=== PATIENT | male | born 1965 | race Caucasian/White ===

== ENCOUNTER → 2020-07-18 | Outpatient (CLI) | payer OTHER, SELFPAY ==
[2020-07-18 10:30] LABS: Vitamin D,25 Hydroxy 30.6 ng/mL
[2020-07-18 10:33] LABS: Anion Gap 4 (5-15); BUN 14 mg/dL (7-18); BUN/Creat Ratio 12.7 RATIO (10-20); Calcium,Total 9.1 mg/dL (8.5-10.1); Chloride 108 mmol/L (98-107); Cholesterol 215 mg/dL (200); EST Glomerular Filtration Rate 74 mL/min (>60); Est Glom Filt Rate - Afr Amer 90 mL/min (>60); Glucose 94 mg/dL (74-106); High Density Lipoprotein 42 mg/dL; PSA,Total - Annual Screen 1.27 ng/mL (0.00-4.00); Potassium 4.1 mmol/L (3.5-5.1); Sodium Level 141 mmol/L (136-145); Thyroid Stim Hormone (TSH) 1.52 uIU/mL (0.358-3.74); Triglycerides 179 mg/dL; Very Low Density Lipoprotein 36 mg/dL (5-40)
== END | disposition home or self-care (01) ==
LOC: MFPLAB 09:00
PROVIDERS: PCP Family Medicine; Referring Provider Family Medicine; Visit Provider Family Medicine
DX: I10 Essential (primary) hypertension (principal); F41.9 Anxiety disorder, unspecified; Z12.5 Encounter for screening for malignant neoplasm of prostate
CPT/HCPCS: 36415; 80048; 80061; 82306; 84153; 84443; G0103

== ENCOUNTER → 2021-07-21 10:10 | Outpatient (CLI) | payer OTHER, SELFPAY ==
[2021-07-21 12:41] LABS: Anion Gap 6 (5-15); BUN 16 mg/dL (7-18); BUN/Creat Ratio 13.8 RATIO (10-20); Calcium,Total 9.4 mg/dL (8.5-10.1); Chloride 106 mmol/L (98-107); Cholesterol 218 mg/dL (200); Creatinine, Serum 1.16 mg/dL (0.70-1.30); EST Glomerular Filtration Rate 70 mL/min (>60); Est Glom Filt Rate - Afr Amer 84 mL/min (>60); Glucose 102 mg/dL (74-106); High Density Lipoprotein 39 mg/dL; PSA,Total - Annual Screen 1.41 ng/mL (0.00-4.00); Potassium 4.2 mmol/L (3.5-5.1); Sodium Level 141 mmol/L (136-145); Triglycerides 183 mg/dL; Very Low Density Lipoprotein 37 mg/dL (5-40)
[2021-07-21 12:57] LABS: Vitamin D,25 Hydroxy 62.7 ng/mL
== END ==
PROVIDERS: PCP Family Medicine; Referring Provider Family Medicine; Visit Provider Family Medicine
DX: I10 Essential (primary) hypertension (principal); E55.9 Vitamin D deficiency, unspecified; Z12.5 Encounter for screening for malignant neoplasm of prostate
CPT/HCPCS: 36415; 80048; 80061; 82306; 84153; 84403; G0103

== ENCOUNTER 2022-03-09 11:00 | Outpatient (RCR) | payer OTHER, SELFPAY ==
--- NOTE | 2022-03-04 15:28 | HP.PTEVAL_ITS ---
Patient's Visit Information TITA MACHADO is a 56 year old M referred to Physical Therapy by Dr. Brissa Mayer MD with a diagnosis of LEFT LATERALIS STAIN ,CHRONIC BACK PAIN. Date of Evaluation: 03/04/22 Physical Therapist: Mo Riojas, PT, Cert MDT, OCS - Visit Plan Frequency: 2x /Week Duration: 4 Weeks Plan: PT INTERVETIONS LUMBAR FLEXIION ,THORCAIC/LUMBAR MOBLITY ,POSTURAL EX'S,LE STRETCHING ,DLS AND MODALTIES PRN - Subjective This 56 y/o male presents to physical therapy with left lumbar pain along with chronic back pain. Patient was golfing ~ 3weeks ago February 09 ,hitting off tie felt pop in left lumbar ,and tried to continue felt sharp pain trying to finish 3 more rounds. Patient has h/o scoliosis since childhood. Patient tried massage which made symptoms worse. Finally seen DR recommended PT. No MEDS . Pain located left lumbar . Symptoms not too bad. Denies paresthesia/tingling. Aggravating twisting motion ,bending. Affects sleeping in upper back. Patient alleviating factors rest. Coughing/sneezing + . Bowel/bladder -. Patient had prior PT many years ago. No x-rays and MEDS. Patients pain left lumbar affects QOL ,function and return to golfing. Patient did see chiropractor for adjustments and injections trigger point. SOCIAL: . 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 SYMMMTRIES: right leg shorter pelvis. GAIT: reciprocal pattern. PALAPTION: tender lateral intercostals and obliques mild. NEURO: denies paresthesia/tingling ,reflexes 2/3 L3-4,L4-5,L5-S1 - Balance/Special Test Scores Oswestry Low Back Score: 14 - Goals Goal 1:: Patient to be I with HEP for lumbar Goal Time Frame: 4-6 Weeks Goal 2:: Patient to be to return to golfing without pain Goal Time Frame: 4-6 Weeks Goal 3:: Patient to demonstrate 60% improvement with function and reduce back pain Goal Time Frame: 4-6 Weeks Goal 4:: Patient to improve lumbar ROM for function of recovery to lift from floor and rotation to return to swinging golf club Goal Time Frame: 4-6 Weeks Goal 5:: Patient to improve back oswestry score by 5 points to improve QL Goal Time Frame: 4-6 Weeks - Rehabilitation Potential Physical Therapy Diagnosis: This patient strain left intercostals /lateral ribs along with chronic pain from scoliosis with pain affecting during position and twisting motion along with generalized tightness in hips and and hamstrings thus benefit from skilled PT Rehabilitation Potential: Good - Anticipated Interventions Patient/Client Instruction: Educate patient on: Condition, Plan of Care For the Purpose of:: To decrease pain, To increase ROM, To improve muscle performance and motor function, To improve ability to perform ADL's, To increase tolerance to activity/condition/position, To improve ability of physical actions for home/community/work/leisure, To improve health of tissue, To decrease soft tissue restriction, To increase flexibility/ROM, To reduce risk of recurrence, To improve health and function, To prevent re-injury Therapeutic Exercise to Include: Strength training, Endurance training, Balance training, Postural training, Flexibilty training, Active ROM, Dynamic Lumbar Stabilization For the Purpose of:: To decrease pain, To increase ROM, To improve muscle performance and motor function, To increase tolerance to activity/condition/position, To improve ability of physical actions for home/community/work/leisure, To improve health of tissue, To decrease soft tissue restriction, To increase flexibility/ROM, To reduce risk of recurrence, To prevent re-injury TENS: Yes IF ES: Yes Cryotherapy (ice pack, ice massage): Yes Thermo therapy (hot pack): Yes Ultrasound (thermal/non thermal): Yes For the Purpose of:: To decrease pain, To decrease swelling/inflammation, To improve nutrient delivery to tissue, To increase oxygenation perfusion, To improve health of tissue, To decrease soft tissue restriction Thank you for the opportunity to evaluate your patient. For Medicare and Medicare HMO plans, please review the plan of care and approve it. It will need to be FAXED BACK to us at [phone] for Medicare purposes. For Medicare only, by signing this I certify the plan of care. Please let me know if there are questions or concerns regarding this plan of care. Physician Signature: Date:
== END 2022-03-09 19:00 | disposition home or self-care (01) ==
LOC: PT 11:00
PROVIDERS: PCP Family Medicine; Referring Provider Family Medicine; Visit Provider Family Medicine
DX: S76.112D Strain of left quadriceps muscle, fascia and tendon, subsequent encounter (principal); M54.9 Dorsalgia, unspecified; G89.29 Other chronic pain
CPT/HCPCS: 97110; 97162

== ENCOUNTER → 2023-07-27 | Outpatient (CLI) | payer OTHER, SELFPAY ==
[2023-07-27 12:25] LABS: Vitamin D,25 Hydroxy 83.4 ng/mL
[2023-07-27 12:31] LABS: Anion Gap 3 (5-15); BUN 17 mg/dL (7-18); Calcium,Total 9.1 mg/dL (8.5-10.1); Chloride 107 mmol/L (98-107); Cholesterol 185 mg/dL (200); Creatinine, Serum 1.13 mg/dL (0.70-1.30); EST Glomerular Filtration Rate 71 mL/min (>60); Est Glom Filt Rate - Afr Amer 86 mL/min (>60); Glucose 90 mg/dL (74-106); High Density Lipoprotein 41 mg/dL; PSA,Total - Annual Screen 1.78 ng/mL (0.00-4.00); Potassium 4.4 mmol/L (3.5-5.1); Sodium Level 139 mmol/L (136-145); Triglycerides 121 mg/dL; Very Low Density Lipoprotein 24 mg/dL (5-40)
== END | disposition home or self-care (01) ==
LOC: MFPLAB 09:36
PROVIDERS: PCP Family Medicine; Visit Provider Family Medicine
DX: E55.9 Vitamin D deficiency, unspecified (principal); Z13.220 Encounter for screening for lipoid disorders; Z12.5 Encounter for screening for malignant neoplasm of prostate; I10 Essential (primary) hypertension
CPT/HCPCS: 36415; 80048; 80061; 82306; 84153; G0103

== ENCOUNTER → 2024-08-04 | Outpatient (CLI) | payer OTHER, SELFPAY ==
[2024-08-04 18:01] LABS: Anion Gap 2 (5-15); BUN 22 mg/dL (7-18); BUN/Creat Ratio 21.4 RATIO (10-20); Calcium,Total 9.3 mg/dL (8.5-10.1); Chloride 109 mmol/L (98-107); Cholesterol 220 mg/dL (200); Creatinine, Serum 1.03 mg/dL (0.70-1.30); EST Glomerular Filtration Rate 79 mL/min (>60); Est Glom Filt Rate - Afr Amer 96 mL/min (>60); Glucose 90 mg/dL (74-106); High Density Lipoprotein 52 mg/dL; PSA,Total - Annual Screen 2.46 ng/mL (0.00-4.00); Potassium 4.1 mmol/L (3.5-5.1); Sodium Level 141 mmol/L (136-145); Triglycerides 130 mg/dL; Very Low Density Lipoprotein 26 mg/dL (5-40)
[2024-08-04 18:02] LABS: Vitamin D,25 Hydroxy 38.4 ng/mL
== END | disposition home or self-care (01) ==
LOC: MFPLAB 15:33
PROVIDERS: PCP Family Medicine; Visit Provider Family Medicine
DX: Z12.5 Encounter for screening for malignant neoplasm of prostate (principal); E55.9 Vitamin D deficiency, unspecified; Z13.220 Encounter for screening for lipoid disorders; I10 Essential (primary) hypertension
CPT/HCPCS: 36415; 80048; 80061; 82306; 84153; G0103